=== PATIENT | female | born 1965 | race Caucasian/White ===

== ENCOUNTER → 2020-05-11 13:27 | Outpatient (CLI) | payer OTHER, SELFPAY ==
--- NOTE | ~2020-05-11 | MM_ITS ---
EXAMINATION: MM screening [facility] BI w raquel HISTORY: Screening TECHNIQUE: Craniocaudal and mediolateral oblique 3-D tomosynthesis images were obtained and synthetic 2-D images were generated. CAD analysis was submitted and interpreted. COMPARISON: Comparison to multiple prior studies sequentially, with oldest reviewed study dated 12/2010. BREAST PARENCHYMAL COMPOSITION: There are scattered areas of fibroglandular density. FINDINGS: There is no evidence of suspicious mass, calcification, or architectural distortion to sugg est malignancy in either breast. There has been no suspicious interval change. IMPRESSION: 1. No mammographic evidence of malignancy. 2. Recommend routine screening mammography in one year. BI-RADS Category 1: Negative Reviewed, dictated and finalized at location A. 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
== END ==
DX: Z12.31 Encounter for screening mammogram for malignant neoplasm of breast (principal)
CPT/HCPCS: 77063; 77067

== ENCOUNTER → 2020-07-06 10:21 | Outpatient (CLI) | payer OTHER, SELFPAY ==
--- NOTE | ~2020-07-06 | XR_ITS ---
XR cervical spine 4-5V DATE: 07/06/2020 10:42 INDICATION: Neck pain, radiculopathy TECHNIQUE: AP, open-mouth, lateral, odontoid views COMPARISON: 03/27/2019 MR cervical spine 07/04/2012 cervical spine FINDINGS: Normal alignment of the cervical spine. C1 and C2 are normally aligned and the odontoid pro cess is intact. No fracture or dislocation or locked facet or prevertebral soft tissue swelling is de tected. Mild loss of height at C6-7 interspace. There is prominent left apical soft tissue capping, not present on 07/04/2012. Right Port-A-Cath. IMPRESSION: Mild loss of height at C6-7 interspace Reviewed, dictated and finalized at location B.
== END ==
PROVIDERS: PCP Physician Assistant
DX: M54.12 Radiculopathy, cervical region (principal); M25.569 Pain in unspecified knee; Z79.891 Long term (current) use of opiate analgesic
CPT/HCPCS: 72050

== ENCOUNTER → 2021-03-18 17:24 | Outpatient (CLI) | payer OTHER, SELFPAY ==
--- NOTE | ~2021-03-18 | XR_ITS ---
XR chest 2V 03/18/2021 17:34 Indication: Persistent cough. Malignant neoplasm of the lung. Procedure: 2 view chest Comparison: Comparison to multiple prior studies sequentially, with oldest reviewed study dated 11/2011. Findings: There is left apical mass, likely corresponding to patient's known malignancy. There is a l eft apical pleural capping. There is tenting of the left diaphragm. Right lung clear. No significant effusion. No pneumothorax. No acute osseous abnormality. Impression: 1: Left apical mass with volume loss, likely corresponding to patient's known malignancy with probabl e sequela of previous surgery/radiation therapy. Reviewed, dictated and finalized at location B. R PACKER Impression: 1: Left apical mass with volume loss, likely corresponding to patient's known m alignancy with probable sequela of previous surgery/radiation therapy.
== END ==
PROVIDERS: PCP Physician Assistant; Visit Provider Physician Assistant
DX: R05.3 Chronic cough (principal)
CPT/HCPCS: 71046

== ENCOUNTER → 2021-07-05 09:33 | Outpatient (CLI) | payer OTHER, SELFPAY ==
--- NOTE | ~2021-07-05 | MR_ITS ---
EXAMINATION: MR cervical spine wo con EXAM DATE: 07/05/2021 10:17 INDICATION: Cervical radiculopathy. TECHNIQUE: Multi-sequential, multiplanar MR images of the cervical spine were obtained without contra st. Axial T2, axial T2 MERGE sequence. Sagittal T1, T2, T2 fat saturation images also obtained. Com parison is made to prior examination from 03/27/2019. FINDINGS: There is mild disc disease at C6-7. The vertebral body and disc heights are otherwise well maintained. The vertebral bodies are aligned in the AP dimension. Cervicomedullary junction is evi l in appearance. The spinal cord signal intensity and intrinsic morphology is normal. There are no nicholas spicious marrow signal abnormalities. Paraspinal soft tissue is unremarkable. Level by level evaluation: C2-C3: Disc does not extend beyond the endplate margin. Uncovertebral joint arthropathy: Mild left. Facet joint arthropathy: Moderate right, mild left. Neural foraminal stenosis: No stenosis. Central canal stenosis: No stenosis. C3-C4: Disc does not extend beyond the endplate margin. Uncovertebral joint arthropathy: Mild bilateral. Facet joint arthropathy: Moderate bilateral. Neural foraminal stenosis: Mild to moderate left. Central canal stenosis: No stenosis. C4-C5: Disc does not extend beyond the endplate margin. Uncovertebral joint arthropathy: Mild left. Facet joint arthropathy: Moderate left, mild right. Neural foraminal stenosis: Moderate left. Central canal stenosis: No stenosis. C5-C6: Disc does not extend beyond the endplate margin. Uncovertebral joint arthropathy: Mild bilateral. Facet joint arthropathy: Moderate right, mild left. Neural foraminal stenosis: No stenosis. Central canal stenosis: No stenosis. C6-C7: There is a mild diffuse disc bulge. Uncovertebral joint arthropathy: Mild to moderate bilateral. Facet joint arthropathy: Mild left mild to moderate left, mild right. Neural foraminal stenosis: No stenosis. Central canal stenosis: No stenosis. C7-T1: Disc does not extend beyond the endplate margin. Uncovertebral joint arthropathy: Mild bilateral. Facet joint arthropathy: Mild left. Neural foraminal stenosis: No stenosis. Central canal stenosis: No stenosis. Difficult to appreciate any significant interval change compared to prior study. IMPRESSION: 1. Moderate cervical arthropathy as above. Reviewed, dictated and finalized at location G.
== END ==
PROVIDERS: PCP Physician Assistant; Visit Provider Pain Medicine Interventional Pain Medicine
DX: M54.12 Radiculopathy, cervical region (principal); M25.569 Pain in unspecified knee; G89.4 Chronic pain syndrome; Z13.89 Encounter for screening for other disorder; Z51.81 Encounter for therapeutic drug level monitoring; Z79.891 Long term (current) use of opiate analgesic
CPT/HCPCS: 72141

== ENCOUNTER → 2021-08-13 13:13 | Outpatient (CLI) | payer OTHER, SELFPAY ==
--- NOTE | ~2021-08-13 | MM_ITS ---
EXAMINATION: MM screening [facility] [place] BI w raquel HISTORY: Screening TECHNIQUE: Craniocaudal and mediolateral oblique 3-D tomosynthesis images were obtained and synthetic 2-D images were generated. CAD analysis was submitted and interpreted. COMPARISON: Comparison to multiple prior studies sequentially, with oldest reviewed study dated 08/10. BREAST PARENCHYMAL COMPOSITION: There are scattered areas of fibroglandular density. FINDINGS: There is no evidence of suspicious mass, calcification, or architectural distortion to sugg est malignancy in either breast. There has been no suspicious interval change. IMPRESSION: 1. No mammographic evidence of malignancy. 2. Recommend routine screening mammography in one year. BI-RADS Category 1: Negative Reviewed, dictated and finalized at location A.
== END ==
PROVIDERS: PCP Physician Assistant; Visit Provider Obstetrics & Gynecology
DX: Z12.31 Encounter for screening mammogram for malignant neoplasm of breast (principal)
CPT/HCPCS: 77063; 77067

== ENCOUNTER 2021-08-19 00:20 | Day surgery (SDC) | payer OTHER, SELFPAY ==
[2021-08-04 15:05] VITALS: BMI 29.4
--- NOTE | 2021-08-18 14:12 | PM.HPGS ---
History of Present Illness History of Present Illness Consent: Risks, benefits, and alternatives have been discussed and questions answered. Patient agrees to proceed with procedure. Chief complaint: anemia Narrative: Tiana Hampton is a 56 year old female who has been found to be anemic. She is due for colon cancer screening. She has not seen blood in her stools. She denies nausea vomiting or epigastric pain. She does not use NSAIDs. Review of Systems Review of Systems: All systems reviewed & are unremarkable except as noted in HPI and below PMFSH Past Medical History Medical History Anxiety Bladder cancer Chronic pain syndrome COPD (chronic obstructive pulmonary disease) Fibromyalgia GERD (gastroesophageal reflux disease) Hypertension Lung cancer Melanoma Family History Family History Mother Cerebrovascular accident Other Family history of kidney stones Social History Social History Smoking packs per day: 1 Smoking cigarettes per day: 20.0 Smoking status: Current every day smoker Tobacco type: cigarettes and e-cigarettes/vaping Additional smoking assessment comments: SMOKED FOR 20 YEARS, LAST 6TH MONTHS VAPES Alcohol intake: never Substance use: current Substance use type: marijuana Other substance usage details: MARIJUANA OIL Living arrangements: with family Spiritual care concerns: No Meds Home Medications and Allergies Home Medications Medication Instructions Recorded Confirmed Type albuterol sulfate 2 puff INHALATION Q6-8H PRN 08/04/21 08/19/21 History amlodipine 5 mg PO DAILY 08/04/21 08/19/21 History aripiprazole [Abilify] 15 mg PO DAILY 08/04/21 08/19/21 History xnjtjshrda-bhgztggo-rribhyuntm 1 inh INHALATION DAILY 08/04/21 08/19/21 History [Breztri Aerosphere] clonazepam 0.5 mg PO DAILY PRN 08/04/21 08/19/21 History hydrochlorothiazide 12.5 mg PO DAILY 08/04/21 08/19/21 History hydrocodone-acetaminophen 1 tablet PO Q6H PRN 08/04/21 08/19/21 History metformin 500 mg PO DAILY 08/04/21 08/19/21 History pantoprazole 40 mg PO DAILY 08/04/21 08/19/21 History paroxetine HCl 30 mg PO DAILY 08/04/21 08/19/21 History rosuvastatin 20 mg PO DAILY 08/04/21 08/19/21 History Allergies Allergy/AdvReac Type Severity Reaction Status Date / Time No Known Allergies Allergy Verified 08/19/21 08:37 Exam Const: General: alert Orientation/consciousness: patient oriented x3 Resp: Auscultation: clear to auscultation bilaterally Cardio: Rhythm: regular rhythm GI: GI Palp: Yes Soft to palpation and No Tenderness to palpation present (GI) Neuro: General: patient oriented x3 Assessment and Plan Assessment and plan (1) Anemia: Code(s): D64.9 - Anemia, unspecified Status: Acute Assessment and Plan: EGD with possible biopsy or dilatation or cautery. (2) Colon cancer screening: Code(s): Z12.11 - Encounter for screening for malignant neoplasm of colon Status: Acute Assessment and Plan: Colonoscopy with possible biopsy or polypectomy or cautery or injection of substances.
[2021-08-19 08:38] VITALS: BP 143/96; PULSE 104; RESP 18; TEMP 36.2; O2SAT 100
[2021-08-19 08:38] LABS: Glucose Point of Care 136 mg/dl (65-105)
[2021-08-19] MEDS: LACTATED RINGERS 1,000 ML 150 ML IV CONT (08:48)
--- NOTE | 2021-08-19 09:02 | WPDANESEPPF ---
Anes - Initial Pre Proc Eval Procedure: Operation Date: 08/19/21 09:30 Proposed Procedures p Esophagogastroduodenoscopy & Colonoscopy - Axel Pollard MD Date/Time: 08/19/21 09:02 Surgeon: Axel Pollard MD Pre Op Diagnosis: anemia Patient Data Age: 56 Gender: F Height: 1.57 m Weight: 74.6 kg Last Vital Signs Temp 36.2 C L 08/19/21 08:38 Pulse 104 H 08/19/21 08:38 Resp 18 08/19/21 08:38 BP 143/96 H 08/19/21 08:38 Pulse Ox 100 08/19/21 08:38 Allergies Allergy/AdvReac Type Severity Reaction Status Date / Time No Known Allergies Allergy Verified 08/19/21 08:37 Home Medications Medication Instructions Recorded Confirmed Type albuterol sulfate 2 puff INHALATION Q6-8H PRN 08/04/21 08/19/21 History amlodipine 5 mg PO DAILY 08/04/21 08/19/21 History aripiprazole [Abilify] 15 mg PO DAILY 08/04/21 08/19/21 History cmwqnurdhp-dywmmtpx-asmwoxyjdt 1 inh INHALATION DAILY 08/04/21 08/19/21 History [Breztri Aerosphere] clonazepam 0.5 mg PO DAILY PRN 08/04/21 08/19/21 History hydrochlorothiazide 12.5 mg PO DAILY 08/04/21 08/19/21 History hydrocodone-acetaminophen 1 tablet PO Q6H PRN 08/04/21 08/19/21 History metformin 500 mg PO DAILY 08/04/21 08/19/21 History pantoprazole 40 mg PO DAILY 08/04/21 08/19/21 History paroxetine HCl 30 mg PO DAILY 08/04/21 08/19/21 History rosuvastatin 20 mg PO DAILY 08/04/21 08/19/21 History Laboratory Tests 08/19/21 08:35 POC Capillary Glucose 136 mg/dl H mg/dl (65-105) Patient hx anesthesia problems: none Family hx anesthesia problems: none Results Review: All pre-operative results and documents have been reviewed as part of the pre-operative evaluation. [facility] Past Medical History Medical History Anxiety Bladder cancer Chronic pain syndrome COPD (chronic obstructive pulmonary disease) Fibromyalgia GERD (gastroesophageal reflux disease) Hypertension Lung cancer Melanoma Family History Family History Mother Cerebrovascular accident Other Family history of kidney stones Social History Social History Smoking packs per day: 1 Smoking cigarettes per day: 20.0 Smoking status: Current every day smoker Tobacco type: cigarettes and e-cigarettes/vaping Additional smoking assessment comments: SMOKED FOR 20 YEARS, LAST 6TH MONTHS VAPES Alcohol intake: never Substance use: current Substance use type: marijuana Other substance usage details: MARIJUANA OIL Living arrangements: with family Spiritual care concerns: No Anes - Eval Final PreProcedure Day of Procedure 08/19/21 09:02 Patient weight: obese Heart: regular rate and rhythm Lungs: decreased breath sounds Airway: Mallampati scale class III and special considerations (would like to preserve couple of teeth) poor dentition Neurological: alert and oriented Last oral intake: >/= 8 hours ASA classification: IV Emergent: no Anesthetic plan: proceed Anesthesia type and monitoring: general GIVS and standard monitoring Results Review: All pre-operative results and documents have been reviewed as part of the pre-operative evaluation. Informed Consent: The patient's anesthetic plan and its attendant risks and benefits were discussed with the patient/family/POA. Questions were solicited and answers provided to the satisfaction of the patient/family/POA.
[2021-08-19] MEDS: SIMETHICONE ORAL SUSPENSION 20 MG/0.3 ML 30 ML BOTTLE 0.6 ML IRRIGATION (09:41)
[2021-08-19 09:51] VITALS: BP 134/66; PULSE 80; RESP 27; O2SAT 97
[2021-08-19 10:01] VITALS: BP 125/76; PULSE 85; RESP 17; O2SAT 99
[2021-08-19 10:11] VITALS: BP 125/69; PULSE 77; RESP 25; O2SAT 100
--- NOTE | 2021-08-20 08:37 | SUR.OPER ---
Colonoscopy started [id number]
== END 2021-08-19 10:22 | disposition home or self-care (01) ==
PROVIDERS: PCP Physician Assistant; Visit Provider Internal Medicine Gastroenterology
PROC: 0DJ08ZZ Inspection of Upper Intestinal Tract, Via Natural or Artificial Opening Endoscopic (ICD-10-PCS; CPT 43235; principal; 2021-08-19 09:30)
DX: Z12.11 Encounter for screening for malignant neoplasm of colon (principal); K29.70 Gastritis, unspecified, without bleeding; K21.9 Gastro-esophageal reflux disease without esophagitis; D64.9 Anemia, unspecified; J44.9 Chronic obstructive pulmonary disease, unspecified; I10 Essential (primary) hypertension; C67.9 Malignant neoplasm of bladder, unspecified; C78.00 Secondary malignant neoplasm of unspecified lung; C43.9 Malignant melanoma of skin, unspecified; M79.7 Fibromyalgia; F41.9 Anxiety disorder, unspecified
CPT/HCPCS: 45378; 43239; 82948; 87081; 88305; J2704; J7120

== ENCOUNTER → 2021-12-23 09:25 | Outpatient (CLI) | payer OTHER, SELFPAY ==
--- NOTE | ~2021-12-23 | XR_ITS ---
EXAMINATION:XR cervical spine 4-5V DATE: 12/23/2021 09:51 INDICATION: Cervical radiculopathy TECHNIQUE: AP, lateral, lateral swimmers and odontoid views of the cervical spine are provided. COMPARISON: 07/06/2020 FINDINGS: Alignment is normal. The odontoid is intact. No fracture is identified. The vertebral body heights are maintained. There is mild loss of intervertebral disc space height at C6-7. Small degener ative osteophytes project from the anterior endplates of multiple vertebral bodies. There is mild to moderate multilevel facet and uncovertebral joint arthritis. Prevertebral soft tissues are normal. In cidental note is made of chronic opacification in the left lung apex, consistent with treated maligna ncy. IMPRESSION: 1. Moderate cervical spondylosis without acute findings or significant interval change. Reviewed, dictated and finalized at location B.
--- NOTE | ~2021-12-23 | XR_ITS ---
EXAMINATION: XR lumbar spine 2-3V DATE: 12/23/2021 09:51 INDICATION: Lumbar radiculopathy TECHNIQUE: Anteroposterior and lateral views of the lumbar spine, and cone-down lateral view of the l umbosacral junction were obtained. COMPARISON: CT, 04/03/2014 FINDINGS: Bone alignment is normal. There is no fracture. The vertebral body heights and intervertebr al disc spaces are maintained. There is mild facet osteoarthritis of the lower lumbar spine. Calcifie d atherosclerosis is noted. The bowel gas pattern is normal. A moderate volume of colonic stool is pr esent. IMPRESSION: 1. Mild lumbar spondylosis. Reviewed, dictated and finalized at location B. IMPRESSION: 1. Mild lumbar spondylosis.
== END ==
PROVIDERS: PCP Physician Assistant; Visit Provider Pain Medicine Interventional Pain Medicine
DX: M47.26 Other spondylosis with radiculopathy, lumbar region (principal); M47.22 Other spondylosis with radiculopathy, cervical region
CPT/HCPCS: 72050; 72100

== ENCOUNTER → 2022-01-26 10:05 | Outpatient (CLI) | payer OTHER, SELFPAY ==
--- NOTE | ~2022-01-26 | XR_ITS ---
EXAM: XR thoracic spine 2V DATE: 01/26/2022 10:25 HISTORY: no injury mid back pain and sob for 6 months . COMPARISON: None available. FINDINGS: Decreased mineralization. Vertebral body alignment intact. Vertebral body heights preserved . No disc space narrowing. No traumatic malalignment or fracture. Apical pleural capping on the left, with volume loss and severe hilar retraction. IMPRESSION: Osteopenia. No fracture or traumatic malalignment in the thoracic spine. Postsurgical/tr eatment change in the left hemithorax, recurrent or residual disease is not excluded. Reviewed, dictated and finalized at location K. IMPRESSION: Osteopenia. No fracture or traumatic malalignment in the thoracic s pine. Postsurgical/treatment change in the left hemithorax, recurrent or resid ual disease is not excluded.
== END ==
PROVIDERS: PCP Physician Assistant; Visit Provider Pain Medicine Interventional Pain Medicine
DX: M47.25 Other spondylosis with radiculopathy, thoracolumbar region (principal); M85.88 Other specified disorders of bone density and structure, other site; Z13.89 Encounter for screening for other disorder
CPT/HCPCS: 72070

== ENCOUNTER → 2022-04-04 10:35 | Outpatient (CLI) | payer OTHER, SELFPAY ==
--- NOTE | ~2022-04-04 | XR_ITS ---
EXAMINATION: XR ankle RT min 3V, XR foot RT min 3V DATE: 04/04/2022 11:25 INDICATION: Right foot injury TECHNIQUE: 1. Anteroposterior, mortise, additional oblique and lateral view of the right ankle were obtained. 2. Dorsoplantar, two oblique and lateral views of the right foot were obtained. COMPARISON: None. FINDINGS: Alignment of the right foot and ankle is normal. No fracture or osteochondral lesion. Mild osteoarthr itis at the first metatarsophalangeal joint. Small Achilles calcaneal spur. No ankle joint effusion. The soft tissues are unremarkable. IMPRESSION: 1. No acute osseous abnormality at the right foot or ankle. Reviewed, dictated and finalized at location B. TREATER IMPRESSION: 1. No acute osseous abnormality at the right foot or ankle.
== END ==
PROVIDERS: PCP Physician Assistant; Visit Provider Physician Assistant
DX: S99.921A Unspecified injury of right foot, initial encounter (principal); X58.XXXA Exposure to other specified factors, initial encounter
CPT/HCPCS: 73610; 73630

== ENCOUNTER → 2023-01-04 09:41 | Outpatient (CLI) | payer OTHER, SELFPAY ==
--- NOTE | ~2023-01-04 | XR_ITS ---
Cervical Spine: AP, lateral, open-mouth views Clinical History: Pain Findings: The normal lordotic curve is maintained. The vertebral bodies and posterior elements appea r intact. The intervertebral disc spaces are well maintained. There is moderate facet arthropathy at the mid cervical spine. Pre-vertebral soft tissues are unremarkable. Impression: Moderate facet arthropathy throughout the mid cervical spine. Reviewed, dictated and finalized at location . Impression: Moderate facet arthropathy throughout the mid cervical spine.
--- NOTE | ~2023-01-04 | XR_ITS ---
Lumbosacral Spine: AP and lateral views Clinical History: Pain Findings: The normal lordotic curve is maintained. The vertebral bodies and posterior elements are i ntact. The intervertebral disc spaces are preserved. There is moderate to advanced facet arthropathy at L4-L5 and L5-S1. The sacroiliac joints are normally outlined. Impression: Moderate to advanced facet arthropathy at the lower lumbar spine. Reviewed, dictated and finalized at location . Impression: Moderate to advanced facet arthropathy at the lower lumbar spine.
--- NOTE | ~2023-01-04 | XR_ITS ---
Thoracic spine: Clinical Indication: Back pain, radiculopathy AP and lateral views were performed. COMPARISON: 01/26/2022 No fracture is seen. There is normal alignment of the vertebrae. The intervertebral disc spaces appe ar normal. Paravertebral soft tissues appear normal. Stable left apical consolidation present. Impression: No significant abnormality of the thoracic spine. Left apical consolidation is unchanged. Reviewed, dictated and finalized at location . Impression: No significant abnormality of the thoracic spine. Left apical consolidation is unchanged.
== END ==
PROVIDERS: PCP Pain Medicine Interventional Pain Medicine; Visit Provider Pain Medicine Interventional Pain Medicine
DX: M54.12 Radiculopathy, cervical region (principal); M54.17 Radiculopathy, lumbosacral region; M54.14 Radiculopathy, thoracic region
CPT/HCPCS: 72040; 72072; 72100

== ENCOUNTER → 2023-03-10 08:13 | Outpatient (CLI) | payer OTHER, SELFPAY ==
--- NOTE | ~2023-03-10 | MM_ITS ---
EXAMINATION: MM screening [facility] BI w raquel HISTORY: Screening mammogram TECHNIQUE: Craniocaudal and mediolateral oblique 3-D tomosynthesis images were obtained and synthetic 2-D images were generated. CAD analysis was submitted and interpreted. COMPARISON: August 13, 2021, May 11, 2020 bilateral screening mammogram examinations BREAST PARENCHYMAL COMPOSITION: There are scattered areas of fibroglandular density. FINDINGS: There is no evidence of suspicious mass, calcification, or architectural distortion to sugg est malignancy in either breast. There has been no suspicious interval change. IMPRESSION: 1. No mammographic evidence of malignancy. 2. Recommend routine screening mammography in one year. BI-RADS Category 1: Negative Reviewed, dictated and finalized at location A. 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
== END ==
PROVIDERS: PCP Obstetrics & Gynecology; Visit Provider Obstetrics & Gynecology
DX: Z12.31 Encounter for screening mammogram for malignant neoplasm of breast (principal)
CPT/HCPCS: 77063; 77067

== ENCOUNTER 2024-01-29 11:57 | Outpatient (CLI) | payer OTHER, SELFPAY ==
--- NOTE | ~2024-01-29 | XR_ITS ---
Clinical Indication: Cough, history lung cancer PA and lateral views of the chest: Comparison: 03/18/2021 Findings: There is stable left apical consolidation and probable retraction of the left hilum. Right lung clear. Cardiomediastinal silhouette is within normal limits. Bones and soft tissues are unremar kable. Impression: No acute abnormality. Stable left apical consolidation and retraction of the left hilum. Findings could reflect postoperati ve and/or post treatment changes related to history of lung cancer. Reviewed, dictated and finalized at location M. Impression: No acute abnormality. Stable left apical consolidation and retraction of the left hilum. Findings cou ld reflect postoperative and/or post treatment changes related to history of arron ng cancer.
== END 2024-01-29 11:58 | disposition home or self-care (01) ==
LOC: MICIMG 12:00
PROVIDERS: PCP Physician Assistant; Visit Provider Physician Assistant
DX: R05.9 Cough, unspecified (principal); Z85.118 Personal history of other malignant neoplasm of bronchus and lung
CPT/HCPCS: 71046

== ENCOUNTER 2024-08-06 08:45 | Outpatient (CLI) | payer OTHER, SELFPAY ==
--- NOTE | ~2024-08-06 | MM_ITS ---
EXAMINATION: MM screening [facility] BI w raquel HISTORY: Screening TECHNIQUE: Craniocaudal and mediolateral oblique 3-D tomosynthesis images were obtained and synthetic 2-D images were generated. CAD analysis was submitted and interpreted. COMPARISON: Comparison to multiple prior studies sequentially, with oldest reviewed study dated 11/2014. BREAST PARENCHYMAL COMPOSITION: Dense: The breasts are heterogeneously dense, which may obscure small masses FINDINGS: There is no evidence of suspicious mass, calcification, or architectural distortion to sugg est malignancy in either breast. There has been no suspicious interval change. IMPRESSION: 1. No mammographic evidence of malignancy. 2. Recommend routine screening mammography in one year. BI-RADS Category 1: Negative Reviewed, dictated and finalized at location A.
== END 2024-08-06 08:46 | disposition home or self-care (01) ==
LOC: MICIMG 08:47
PROVIDERS: PCP Physician Assistant; Visit Provider Obstetrics & Gynecology
DX: Z12.31 Encounter for screening mammogram for malignant neoplasm of breast (principal)
CPT/HCPCS: 77063; 77067

== ENCOUNTER 2025-04-15 07:45 | Outpatient (CLI) | payer OTHER, SELFPAY ==
--- NOTE | ~2025-04-15 | XR_ITS ---
EXAMINATION: XR thoracic spine 3V, XR lumbar spine 2-3V EXAMINATION:XR thoracic spine 3V, XR lumbar spine 2-3V DATE: 04/15/2025 08:09 INDICATION: Cervical, thoracic and lumbar radiculopathy TECHNIQUE: 1. AP, lateral,, submental and open-mouth and odontoid views of the cervical spine are provided. 2. AP, lateral and lateral swimmer's views of the thoracic spine were obtained. 3. AP, lateral and coned-down lateral lumbosacral views of the lumbar spine were obtained. COMPARISON: None FINDINGS: Cervical spine: Alignment is normal. Odontoid is intact. Normal atlantoaxial interval. Vertebral body heights are normal. Mild disc height loss at C6-C7. Multilevel mild to moderate cervical uncovertebral osteoarthritis. There is also moderate to severe cervical facet osteoarthritis most prominent on the right at C3-C4 and C5-C6 and on the left at C4-C5. Prevertebral soft tissues are normal. Thoracic spine: 7 degrees thoracic levocurvature. Sagittal alignment is normal. Vertebral body heights are normal. There is mild disc height loss at a few levels in the upper and lower thoracic spine. There is opacification of the left apex with cephalad retraction of the left hilum which suggests either prior partial pneumonectomy or radiation treatment. Correlate with clinical history. No pleural effusion or pneumothorax. Lumbar spine: 2 mm anterolisthesis L4 on L5. Alignment is otherwise normal. Vertebral body heights are normal. Mild disc height loss at L5-S1. Mild to moderate lower lumbar predominant facet osteoarthritis. IMPRESSION: 1. Mild cervical, thoracic and lumbar spondylosis. 2. Consolidation at the left apex with cephalad retraction of the hilum suggesting prior partial pneumonectomy or radiation treatment. Correlate with clinical history. Reviewed, dictated and finalized at location A. T USHER IMPRESSION: 1. Mild cervical, thoracic and lumbar spondylosis. 2. Consolidation at the left apex with cephalad retraction of the hilum suggest ing prior partial pneumonectomy or radiation treatment. Correlate with clinical history.
--- NOTE | ~2025-04-15 | XR_ITS ---
EXAMINATION:XR_CERV2-3V_CR DATE: 04/15/2025 08:09 INDICATION: Cervical, thoracic and lumbar radiculopathy TECHNIQUE: 1. AP, lateral,, submental and open-mouth and odontoid views of the cervical spine are provided. 2. AP, lateral and lateral swimmer's views of the thoracic spine were obtained. 3. AP, lateral and coned-down lateral lumbosacral views of the lumbar spine were obtained. COMPARISON: None FINDINGS: Cervical spine: Alignment is normal. Odontoid is intact. Normal atlantoaxial interval. Vertebral body heights are normal. Mild disc height loss at C6-C7. Multilevel mild to moderate cervical uncovertebral osteoarthritis. There is also moderate to severe cervical facet osteoarthritis most prominent on the right at C3-C4 and C5-C6 and on the left at C4-C5. Prevertebral soft tissues are normal. Thoracic spine: 7 degrees thoracic levocurvature. Sagittal alignment is normal. Vertebral body heights are normal. There is mild disc height loss at a few levels in the upper and lower thoracic spine. There is opacification of the left apex with cephalad retraction of the left hilum which suggests either prior partial pneumonectomy or radiation treatment. Correlate with clinical history. No pleural effusion or pneumothorax. Lumbar spine: 2 mm anterolisthesis L4 on L5. Alignment is otherwise normal. Vertebral body heights are normal. Mild disc height loss at L5-S1. Mild to moderate lower lumbar predominant facet osteoarthritis. IMPRESSION: 1. Mild cervical, thoracic and lumbar spondylosis. 2. Consolidation at the left apex with cephalad retraction of the hilum suggesting prior partial pneumonectomy or radiation treatment. Correlate with clinical history. Reviewed, dictated and finalized at location A. 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 Mild cervical, thoracic and lumbar spondylosis. 2. Consolidation at the left apex with cephalad retraction of the hilum suggest ing prior partial pneumonectomy or radiation treatment. Correlate with clinical history.
== END 2025-04-15 07:46 | disposition home or self-care (01) ==
LOC: MICIMG 07:48
PROVIDERS: PCP Physician Assistant; Visit Provider Pain Medicine Interventional Pain Medicine
DX: M47.812 Spondylosis without myelopathy or radiculopathy, cervical region (principal); M47.814 Spondylosis without myelopathy or radiculopathy, thoracic region; M47.816 Spondylosis without myelopathy or radiculopathy, lumbar region; J98.4 Other disorders of lung
CPT/HCPCS: 72040; 72072; 72100